=== PATIENT | female | born 1940 | race Caucasian/White ===

== ENCOUNTER → 2018-01-15 | Outpatient (CLI) | payer OTHER | LOC: RAD 14:06 | DX: Z12.31 Encounter for screening mammogram for malignant neoplasm of breast (principal) ==

== ENCOUNTER → 2018-04-01 | Outpatient (CLI) | payer OTHER | LOC: RAD 09:44 | DX: M54.12 Radiculopathy, cervical region (principal) ==

== ENCOUNTER → 2018-04-04 | Outpatient (CLI) | payer OTHER | LOC: MRI 12:31 | DX: M47.892 Other spondylosis, cervical region (principal); M48.02 Spinal stenosis, cervical region; M40.56 Lordosis, unspecified, lumbar region; M25.78 Osteophyte, vertebrae ==

== ENCOUNTER 2018-07-19 11:45 | Emergency (ER) | payer OTHER ==
[~2018-07-19] VITALS: Ht 162.6 cm; Wt 63.5 kg
[2018-07-19] MEDS ORDERED: TOPROL XL25 MG PO (12:05)
[2018-07-19] MEDS ORDERED: SYNTHROID75 MCG PO (12:05)
[2018-07-19] MEDS ORDERED: RISPERDAL4 M1 PO (12:06)
[2018-07-19] MEDS ORDERED: PRAVACHOL20 MG PO (12:07)
[2018-07-19] MEDS ORDERED: NORCO 5-325 TA1 EACH PO (12:40)
[2018-07-19 13:30] VITALS: BP 145/69
== END 2018-07-19 13:32 | disposition home or self-care (01) ==
LOC: ER 11:45
DX: S52.592A Other fractures of lower end of left radius, initial encounter for closed fracture (principal); Z90.49 Acquired absence of other specified parts of digestive tract; Z90.710 Acquired absence of both cervix and uterus; W22.8XXA Striking against or struck by other objects, initial encounter; Y92.89 Other specified places as the place of occurrence of the external cause; Y93.89 Activity, other specified; Y99.8 Other external cause status

== ENCOUNTER 2018-11-21 13:14 | Emergency (ER) | payer OTHER ==
[~2018-11-21] VITALS: Ht 162.6 cm; Wt 63.5 kg
[~2018-11-21 13:14] MED LIST: NORCO 5-325 TA1 EACH PO; PRAVACHOL20 MG PO; RISPERDAL4 M1 PO; SYNTHROID75 MCG PO; TOPROL XL25 MG PO
[2018-11-21 16:38] VITALS: BP 123/63
== END 2018-11-21 16:40 | disposition home or self-care (01) ==
LOC: ER 13:14
DX: S92.331A Displaced fracture of third metatarsal bone, right foot, initial encounter for closed fracture (principal); Z90.49 Acquired absence of other specified parts of digestive tract; Z90.89 Acquired absence of other organs; Z90.710 Acquired absence of both cervix and uterus; X50.0XXA Overexertion from strenuous movement or load, initial encounter; Y93.01 Activity, walking, marching and hiking; Y92.096 Garden or yard of other non-institutional residence as the place of occurrence of the external cause; Y99.8 Other external cause status

== ENCOUNTER → 2019-01-24 | Outpatient (CLI) | payer OTHER | LOC: RAD 01-17 13:34 | DX: Z12.31 Encounter for screening mammogram for malignant neoplasm of breast (principal) ==

== ENCOUNTER → 2020-02-18 | Outpatient (CLI) | payer OTHER | LOC: RAD 09:09 | PROVIDERS: ATTEND Family Medicine | DX: Z12.31 Encounter for screening mammogram for malignant neoplasm of breast (principal) ==

== ENCOUNTER 2020-09-04 04:03 | Emergency (ER) | payer OTHER ==
[~2020-09-04] VITALS: Ht 165.1 cm; Wt 59.0 kg
[2020-09-04] MEDS ORDERED: DILTIAZEM 24HR120 M1 PO (05:40)
[2020-09-04] MEDS ORDERED: LEXAPRO 10 MG T10 M2 PO (05:41)
[2020-09-04 07:39] VITALS: BP 150/74
== END 2020-09-04 07:40 | disposition home or self-care (01) ==
LOC: ER 04:03
DX: S01.01XA Laceration without foreign body of scalp, initial encounter (principal); S16.1XXA Strain of muscle, fascia and tendon at neck level, initial encounter; Z90.89 Acquired absence of other organs; Z79.891 Long term (current) use of opiate analgesic; Z79.899 Other long term (current) drug therapy; W20.8XXA Other cause of strike by thrown, projected or falling object, initial encounter; Y99.8 Other external cause status; Y93.89 Activity, other specified; Y92.89 Other specified places as the place of occurrence of the external cause

== ENCOUNTER 2020-12-17 12:48 | Inpatient (IN) | payer OTHER ==
[~2020-12-17] VITALS: Ht 165.1 cm; Wt 64.0 kg
[~2020-12-17 12:48] MED LIST changes: +DILTIAZEM 24HR120 M1 PO; +LEXAPRO 10 MG T10 M2 PO; +PRAVACHOL 20 MG20 M1 PO; -PRAVACHOL20 MG PO
[2020-12-17 12:56] VITALS: BP 153/75
[2020-12-17 13:55] LABS: HEMOGLOBIN 12.1 gm/dL (12.0-15.0); MCHC 32.8 g/dL (28.0-37.0)
[2020-12-17 13:57] LABS: ABSOLUTE NEUTROPHILS 3.9 thou/uL (1.4-8.2); BASOPHILS 0.4 % (0.0-2.0); EOSINOPHILS 2.1 % (0.0-3.0); HEMATOCRIT 36.9 % (37.0-47.0); LYMPHOCYTES 33.8 % (24.0-44.0); MCH 30.5 pg (26.0-34.0); MCV 92.9 fL (80.0-100.0); MONOCYTES 7.1 % (1.0-8.0); PLATELET COUNT 160 thou/uL (150-400); POLYS 56.6 % (36.0-66.0); RBC 3.98 mil/uL (4.20-5.00); RDW 13.9 % (10.5-14.5); WBC 6.8 thou/uL (4.0-11.0)
[2020-12-17 14:08] LABS: CREATININE 0.9 mg/dL (0.6-1.0); POTASSIUM 3.9 mmol/L (3.5-5.1)
[2020-12-17 14:10] LABS: APTT 26.9 Seconds (24.5-32.8); INR 1.02; PROTIME 11.1 Seconds (10.5-12.1)
[2020-12-17 15:15] VITALS: BP 156/79
--- NOTE | 2020-12-17 15:15 | NUR ---
HANDOFF TOOL SENT AT THIS TIME
[2020-12-17 15:36] VITALS: BP 158/57
[2020-12-17 16:35] VITALS: BP 176/85
--- NOTE | 2020-12-17 18:40 | NUR ---
PATIENT ADMIT TO [facility] FROM ER AT 1635. A/O X4. C/O DIZZINESS. NO N/V. AMBULATED TO BATHROOM GAIT STEADY. WILL KEEP MONITOR.
[2020-12-17] MEDS ORDERED: RISPERDAL0.5 MG PO (21:12)
[2020-12-17 21:15] VITALS: BP 141/72
[2020-12-18 03:30] VITALS: BP 132/82
[2020-12-18 05:37] LABS: HEMATOCRIT 40.3 % (37.0-47.0); HEMOGLOBIN 13.3 gm/dL (12.0-15.0); MCH 30.4 pg (26.0-34.0); MCV 91.9 fL (80.0-100.0); RBC 4.39 mil/uL (4.20-5.00); RDW 13.7 % (10.5-14.5); WBC 6.4 thou/uL (4.0-11.0)
[2020-12-18 05:46] LABS: CALCIUM 8.5 mg/dL (8.5-10.1); POTASSIUM 4.1 mmol/L (3.5-5.1)
--- NOTE | 2020-12-18 05:58 | NUR ---
Pt. requested for her home meds. UPSETTER SETTER UP notified and order obtained. Pt. stated she slept well during the night. Bed alarm on . Calls appropriately for assistance. Denies being dizzy when she got up to use bathroom. Making some progress towards care plan goals.
[2020-12-18 07:17] VITALS: BP 139/79
--- NOTE | 2020-12-18 12:17 | NUR ---
PT IS ALERT AND ORIENTED X4. PT IS SR ON THE MONITOR AND RA. PT STATES SHE IS NOT FEELING DIZZY OR LIGHTHEADED. PT WALKED TO BATHROOM WITHOUT ISSUES OF FEELING LIGHTHEADED OR DIZZY. NO COMPLAINTS OF PAIN OR DISCOMFORT AT THIS TIME. PT STATES SHE IS READY TO GO HOME BECAUSE SHE FEELS BETTER.
[2020-12-18] MEDS ORDERED: MECLIZINE HCL25 MG PO (12:39)
[2020-12-18 12:55] VITALS: BP 139/79
--- NOTE | 2020-12-18 13:20 | NUR ---
PT LEFT VIA WHEELCHAIR TO EXIT WITH STAFF AND DRIVING. PT TOOK ALL BELONGINGS. IV DISCONTINUED. REVIEWED DISCHARGE INSTRUCTIONS WITH PT. PT VERBALIZED UNDERSTANDING.
--- NOTE | 2020-12-18 16:08 | NUR ---
ORDER RECEIVED. Pt DISCHARGED FROM THE HOSPITAL BEFORE PT EVALUATION COULD BE COMPLETED.
--- NOTE | 2020-12-20 07:26 | EKG ---
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
== END 2020-12-18 13:47 | disposition home or self-care (01) | DRG 149 ==
LOC: ER 12:48 → EROBS 15:12 → 3W 15:12
PROVIDERS: Emergency Medicine; ADMIT Hospitalist; ATTEND Hospitalist
DX: H81.10 Benign paroxysmal vertigo, unspecified ear (principal); Z20.822 Contact with and (suspected) exposure to COVID-19; E03.9 Hypothyroidism, unspecified; E78.5 Hyperlipidemia, unspecified; Z90.49 Acquired absence of other specified parts of digestive tract; Z90.710 Acquired absence of both cervix and uterus
CPT/HCPCS: 10879

== ENCOUNTER → 2021-02-28 | Outpatient (CLI) | payer OTHER ==
[~2021-02-28] MED LIST changes: +MECLIZINE HCL25 MG PO; +RISPERDAL0.5 MG PO
== END ==
LOC: BC 10:03
PROVIDERS: ATTEND Family Medicine
DX: Z12.31 Encounter for screening mammogram for malignant neoplasm of breast (principal); N64.89 Other specified disorders of breast

== ENCOUNTER → 2021-04-15 | Outpatient (CLI) | payer OTHER ==
[~2021-04-15] VITALS: Ht 264.2 cm; Wt 61.2 kg
[~2021-04-15] MED LIST changes: +ASPIRIN EC81 M1 PO; +B COMPLEX WITH1 EAC1 PO; +CALTRATE-600 W1 EACH PO; +IBUPROFEN200 M1 PO; +PRAVASTATIN SOD20 MG PO; +PROLIA60 MG/1 ML SUBQ; +VITAMIN C1000 MG PO; +VITAMIN D325 MC2 PO
[2021-04-15 08:53] VITALS: BP 129/70
--- NOTE | 2021-04-15 09:14 | NUR ---
Pain Clinic Assessment: 1. History of Osteoarthritis: History of Rheumatoid Arthritis: 2. Height: 5 ft. 44 in. 264.2 cm. Weight: 135.0 lb. oz. 61.236 kg. Patient's BMI: 8.8 3. Vital Signs: BP: 129/70 Pulse: 67 Resp: 20 Temp: 02 Sat: 97 ECG Mon: 4. Pain Intensity: 5 8 IN THE MORNING 5. Fall Risk: Dizziness: N Needs help standing or walking: N Fallen in the last 3 months: N Fall risk comments: 6. Patient on Blood Thinner: None 7. History of Hypertension: N 8. Opioid Therapy greater than 6 weeks: N Opiate Contract Signed: 9. Risk Assessment Tool Provided: 0-3 LOW RISK 10. Functional Assessment Tool: 11. Recreational Drug Use: Never Drug Type: Tobacco Use: Never Smoker Tobacco Type: Amount or Packs/day: How Many Years: Alcohol Use: No Frequency: Quant:
== END | disposition home or self-care (01) ==
LOC: PAIN 07:52
PROVIDERS: ATTEND Anesthesiology Pain Medicine
DX: M54.16 Radiculopathy, lumbar region (principal); G89.29 Other chronic pain; I10 Essential (primary) hypertension; E78.5 Hyperlipidemia, unspecified; G47.30 Sleep apnea, unspecified; E03.9 Hypothyroidism, unspecified; M81.0 Age-related osteoporosis without current pathological fracture; F41.1 Generalized anxiety disorder; Z98.890 Other specified postprocedural states; Z90.710 Acquired absence of both cervix and uterus; Z79.899 Other long term (current) drug therapy; Z90.49 Acquired absence of other specified parts of digestive tract; Z88.8 Allergy status to other drugs, medicaments and biological substances; Z88.0 Allergy status to penicillin